=== PATIENT | male | born 1995 | race Caucasian/White ===

== ENCOUNTER 2020-09-11 01:49 | Emergency (ER) | payer MEDICAID, OTHER ==
[~2020-09-11] VITALS: Ht 172.7 cm; Wt 98.0 kg
[2020-09-11 02:50] VITALS: BP 140/90
== END 2020-09-11 03:16 | disposition home or self-care (01) ==
LOC: ER 01:49
DX: F41.9 Anxiety disorder, unspecified (principal)
CPT/HCPCS: 99283